=== PATIENT | female | born 1990 | race Caucasian/White ===

== ENCOUNTER 2020-09-21 10:47 | Emergency (ER) | payer SELFPAY ==
[2020-09-21 10:59] VITALS: BP 112/74; PULSE 74; TEMP 99.3; BMI 21.7
[2020-09-21] MEDS ORDERED: ACETAMINOPHEN 500 MG TABLET (FP) PO ONE (11:07)
[2020-09-21] MEDS ORDERED: ACETAMINOPHEN 500 MG TABLET (FP) ONE (11:12)
[2020-09-21 11:23] LABS: EOS % 3.1 % (0-4.5); HEMATOCRIT 37.1 % (32.4-45.2); HEMOGLOBIN 12.4 GM/dl (10.7-15.3); LYMPH % 35.5 % (8-40); MCH 27.6 pg (25.7-33.7); MCHC 33.4 g/dl (32.0-36.0); MEAN CELL VOLUME 82.4 fl (80-96); MEAN PLT VOLUME 8.3 fl (7.5-11.1); MONO % 6.9 % (3.8-10.2); NEUT % 53.5 % (42.8-82.8); PLATELET COUNT 227 10^3/uL (134-434); RBC 4.51 M/mm3 (3.60-5.2); RDW 12.9 % (11.6-15.6); WHITE BLOOD COUNT 5.7 K/mm3 (4.0-10.8)
[2020-09-21 11:27] LABS: HCG,QUALITATIVE URINE Negative
[2020-09-21 11:34] LABS: ALBUMIN 3.8 g/dl (3.4-5.0); BILIRUBIN,TOTAL 0.4 mg/dl (0.2-1); CREATININE 0.6 mg/dl (0.55-1.3); TOT PROT 7.2 g/dl (6.4-8.2)
[2020-09-21 11:55] LABS: EPITHELIAL CELLS MODERATE /hpf
== END 2020-09-21 13:19 | disposition home or self-care (01) ==
LOC: FER 10:47
DX: R10.9 Unspecified abdominal pain (principal)
CPT/HCPCS: 36415; 76830-TC; 80053; 81003; 81015; 84703; 85025; 86850; 86900; 86901; 87086; 99284-25